=== PATIENT | female | born 1970 | race Caucasian/White ===

== ENCOUNTER 2016-11-30 17:02 | Emergency (ER) | payer SELFPAY ==
[~2016-11-30] VITALS: Ht 152.4 cm; Wt 60.0 kg
[2016-11-30 17:53] VITALS: BP 101/58; PULSE 90; RESP 19; TEMP 98.2; O2SAT 98
[2016-11-30] MEDS ORDERED: IBUP-232 PO (17:58)
[2016-11-30] MEDS ORDERED: PROV5TAB PO (17:58)
--- NOTE | 2016-11-30 18:09 | PD ---
HPI Chief Complaint: Injury Time Seen by Provider: 18:00 Travel History International Travel<30 days: No Contact w/Intl Traveler<30days: No Traveled to known affect area: No History of Present Illness HPI 45-year-old female here for evaluation of left heel pain. The patient reports that while cleaning the house 2 days ago she jumped off of her bed and landed onto her left heel. Since that time she has been unable to put any pressure on her left heel. Pain is moderate, worse with palpation and ambulation. She denies any other injuries. PFSH Past Medical History COPD: Yes (BRONCHITIS) Tetanus Vaccination: Unknown ?: Not LMP: 11/17/16 Tubal Ligation: Yes Past Surgical History Surgical History: No Previous Surgery Section: Yes (X2) Social History Alcohol Use: No Tobacco Use: Yes (05/12 PPD) Substance Use: No Allergies-Medications (Allergen,Severity, Reaction): Coded Allergies: No Known Allergies (Verified , 11/30/16) Reported Meds & Prescriptions Reported Meds & Active Scripts Active Reported Ibuprofen 600 Mg Tab 600 Mg PO Q6H PRN Provera (Medroxyprogesterone Acetate) 5 Mg Tab 5 Mg PO DAILY Start day 21 Review of Systems Except as stated in HPI: all other systems reviewed are Neg Physical Exam Narrative GENERAL: Well-developed, well-nourished, comfortable, no apparent distress. SKIN: Focused skin assessment warm/dry. Left heel with mild medial ecchymosis. No lacerations, abrasions. HEAD: Atraumatic. Normocephalic. CARDIOVASCULAR: Regular rate and rhythm. Bilateral dorsalis pedis pulses are brisk and equal. RESPIRATORY: No accessory muscle use. Clear to auscultation. Breath sounds equal bilaterally. MUSCULOSKELETAL: Left heel with mild edema with mild medial ecchymosis with moderate tenderness. Rest of the left foot is nontender and without obvious deformity. Left medial and lateral malleoli are mildly tender without obvious deformity, with normal range of motion. No tenderness at the proximal left fibula. NEUROLOGICAL: Awake and alert. No obvious cranial nerve deficits. Motor grossly within normal limits. Normal speech. Normal sensation in bilateral feet. PSYCHIATRIC: Appropriate mood and affect; insight and judgment normal. Data Data Last Documented VS Vital Signs Date Time Temp Pulse Resp B/P Pulse Ox O2 Delivery O2 Flow Rate FiO2 11/30/16 17:54 90 19 98 Room Air 11/30/16 17:53 98.2 101/58 Orders Foot, Complete ([facility]) (11/30/16 ) Ankle, Complete ([id number]) (11/30/16 ) MDM Medical Decision Making Medical Screen Exam Complete: Yes Emergency Medical Condition: Yes Differential Diagnosis Calcaneal fracture, calcaneal contusion, ankle sprain Narrative Course Left ankle x-ray: No acute fracture. Small plantar calcaneal spur. Left foot x-ray: No acute fracture. Patient was made aware of all findings. She has prescription for ibuprofen at home. She will be given crutches. She is stable for discharge home with outpatient follow-up with a tinner automatic in the next 1-2 weeks. She'll also be given a note for work. She was informed on when to return to the emergency department. She verbalizes understanding and agreement with plan. Diagnosis Primary Impression: Contusion of left heel Qualified Code: S90.32XA - Contusion of left heel, initial encounter Referrals: Esau Ovalles DPPankaj 3 days Primary Care Physician 3 days Additional Instructions: Follow-up with a primary care physician or a [facility] automatic this week. Return to the emergency department for worsening symptoms or any other concerns. Disposition: 01 DISCHARGE HOME Condition: Stable Berny Ferrer MD Nov 30, 2016 18:08
--- NOTE | 2016-11-30 18:36 | RADRPT ---
EXAM DATE/TIME: 11/30/2016 18:23 [facility] COMPARISON: No previous studies available for comparison. INDICATIONS : Jumped off bed pain in left heel. MEDICAL HISTORY : None. SURGICAL HISTORY : None. ENCOUNTER: Initial ACUITY: 1 day PAIN SCORE: 0/10 LOCATION: Left foot FINDINGS: Three view examination of the left foot demonstrates no soft tissue swelling, dislocation, or fractur e. The tarsal bones appear intact. The interphalangeal and metatarsophalangeal joints are intact. The calcaneus is intact. Bony mineralization is normal. Small plantar calcaneal spur. CONCLUSION: No acute fracture. Juanito Smith MD on November 30, 2016 at 18:35 Board Certified Radiologist. This report was verified electronically.
--- NOTE | 2016-11-30 18:37 | RADRPT ---
EXAM DATE/TIME: 11/30/2016 18:27 [facility] COMPARISON: No previous studies available for comparison. INDICATIONS : Jumped off bed pain in left heel. MEDICAL HISTORY : None. SURGICAL HISTORY : None. ENCOUNTER: Initial ACUITY: 1 day PAIN SCORE: 0/10 LOCATION: Left ankle FINDINGS: Three view exam was performed of the left ankle. The bony structures are in normal alignment. No ev idence of fracture, dislocation, or soft tissue swelling. The ankle mortise is intact. No radiopaqu e foreign bodies are seen. Bony mineralization is normal. CONCLUSION: No acute fracture. Small plantar calcaneal spur. Juanito Smith MD on November 30, 2016 at 18:35 Board Certified Radiologist. This report was verified electronically.
== END 2016-11-30 20:20 | disposition home or self-care (01) ==
LOC: NEPD 17:02
DX: S90.32XA Contusion of left foot, initial encounter (principal); M77.32 Calcaneal spur, left foot; X50.0XXA Overexertion from strenuous movement or load, initial encounter; Y93.E9 Activity, other interior property and clothing maintenance; Y92.009 Unspecified place in unspecified non-institutional (private) residence as the place of occurrence of the external cause
CPT/HCPCS: 73610; 73630; 99283; L1830